=== PATIENT | male | born 1995 | race African-American/Black ===

== ENCOUNTER 2020-06-03 02:30 | Emergency (ER) | payer OTHER ==
[2020-06-03] MEDS ORDERED: LIDOCAINE 1% INJ 20 ML 20 ML VIAL ONE (02:46)
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
[2020-06-03] MEDS ORDERED: LIDOCAINE 1% INJ 20 ML 20 ML VIAL INJ ONE (03:45)
[2020-06-03 04:04] VITALS: BP 129/57
[2020-06-03] MEDS ORDERED: ONDA4TAB11 PO (07:36)
== END 2020-06-03 07:47 | disposition home or self-care (01) ==
LOC: ER FS 02:42
DX: S06.0X0A Concussion without loss of consciousness, initial encounter (principal); S01.81XA Laceration without foreign body of other part of head, initial encounter; S01.511A Laceration without foreign body of lip, initial encounter; S01.512A Laceration without foreign body of oral cavity, initial encounter; S50.811A Abrasion of right forearm, initial encounter; S20.319A Abrasion of unspecified front wall of thorax, initial encounter; F17.210 Nicotine dependence, cigarettes, uncomplicated; Y04.0XXA Assault by unarmed brawl or fight, initial encounter
CPT/HCPCS: 12011; 70450; 70486; 72125